=== PATIENT | female | born 1955 ===

== ENCOUNTER 2025-05-07 09:16 | Day surgery (SDC) | payer MEDICARE ==
[~2025-05-07] VITALS: Ht 160 cm; Wt 78.6 kg
[~2025-05-07 09:16] MED LIST: OMEP20ER PO
== END 2025-05-07 11:55 | disposition home or self-care (01) ==
LOC: ORSCSDS 09:16
PROVIDERS: Specialist
PROC: 0DB68ZX Excision of Stomach, Via Natural or Artificial Opening Endoscopic, Diagnostic (ICD-10-PCS; principal; 2025-05-07 10:45)
PROC: 0DB48ZX Excision of Esophagogastric Junction, Via Natural or Artificial Opening Endoscopic, Diagnostic (ICD-10-PCS; principal; 2025-05-07 10:45)
DX: R13.10 Dysphagia, unspecified (principal); K21.9 Gastro-esophageal reflux disease without esophagitis; K44.9 Diaphragmatic hernia without obstruction or gangrene; K22.10 Ulcer of esophagus without bleeding
CPT/HCPCS: 88305; 88342; J2704; J7120